=== PATIENT | male | born 2000 | race Two or more races ===

== ENCOUNTER 2020-10-19 11:42 | Emergency (ER) | payer SELFPAY | END 2020-10-19 13:10 | disposition home or self-care (01) | LOC: FER 11:42 | DX: S01.01XA Laceration without foreign body of scalp, initial encounter (principal); Z23 Encounter for immunization; W20.8XXA Other cause of strike by thrown, projected or falling object, initial encounter; Y92.89 Other specified places as the place of occurrence of the external cause; Y99.0 Civilian activity done for income or pay | CPT/HCPCS: 90471; 90715 ==

== ENCOUNTER 2020-10-28 13:58 | Emergency (ER) | payer OTHER | END 2020-10-28 15:12 | disposition home or self-care (01) | LOC: FER 13:58 | DX: S01.01XD Laceration without foreign body of scalp, subsequent encounter (principal); X58.XXXD Exposure to other specified factors, subsequent encounter | CPT/HCPCS: 99281 ==